=== PATIENT | male | born 2000 | race Caucasian/White ===

== ENCOUNTER 2021-02-02 19:50 | Emergency (ER) | payer MEDICAID, SELFPAY ==
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
[2021-02-02 20:00] VITALS: BP 135/79; BP 180/90; PULSE 118; PULSE 124; RESP 16; TEMP 37.3; O2SAT 98; BMI 39.1
[2021-02-02 20:06] VITALS: BP 135/79; PULSE 119; RESP 15; O2SAT 99
[2021-02-02 21:37] VITALS: BP 119/70; PULSE 99; RESP 15; O2SAT 97
[2021-02-02] MEDS: oxyCODONE HCl Immed Release 5 MG TABLET 10 MG PO (21:38)
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
== END 2021-02-02 21:43 | disposition home or self-care (01) ==
PROVIDERS: Emergency Provider Internal Medicine
DX: S20.211A Contusion of right front wall of thorax, initial encounter (principal); R07.81 Pleurodynia; Y04.8XXA Assault by other bodily force, initial encounter; Y93.9 Activity, unspecified; Y92.9 Unspecified place or not applicable; Y99.9 Unspecified external cause status; Z79.899 Other long term (current) drug therapy
CPT/HCPCS: 71101; 99285

== ENCOUNTER 2021-02-16 11:48 | Emergency (ER) | payer MEDICAID, SELFPAY ==
[2021-02-16 12:03] VITALS: BP 102/74; PULSE 91; RESP 16; TEMP 36.9; O2SAT 96; BMI 37.5
[2021-02-16 12:22] LABS: IDNOW Serial# 9DD0AD1C; Strep A Nucleic Acid Positive (Negative)
[2021-02-16 12:58] LABS: Influenza A PCR NEGATIVE (Negative); Influenza B PCR NEGATIVE (Negative); Resp Syncy Virus RNA Qual PCR NEGATIVE (Negative); SARS COV2 PCR INHOUSE POSITIVE (Negative)
--- NOTE | 2021-02-16 13:34 | ED.URI ---
HPI - URI/Sore Throat General Chief Complaint: Upper Respiratory Symptoms Stated Complaint: SORE THROAT Time Seen by Provider: 02/16/21 13:10 Source: patient Mode of arrival: ambulatory History of Present Illness HPI Narrative: 20-year-old male with no significant past medical history presenting to the ED complaining of sore throat since yesterday morning. Reports pain with swallowing. Denies fever, chills, ear pain, cough, headache, sick contacts, recent travel, difficulty/inability to swallow MD elicited complaint: sore throat Related Data Previous Rx's Medication Instructions Recorded oxycodone 5 mg PO Q6H PRN #20 tab 02/02/21 acetaminophen [Tylenol Extra 500 mg PO Q6H PRN #20 tab 02/16/21 Strength] amoxicillin-pot clavulanate 1 tab PO Q12H 7 Days #14 tab 02/16/21 [Augmentin] ibuprofen 600 mg PO Q8H PRN #14 tab 02/16/21 Allergies Allergy/AdvReac Type Severity Reaction Status Date / Time No Known Allergies Allergy Verified 02/02/21 20:05 Review of Systems Review of Systems: Constitutional: No Fever, No Chills ENT/Mouth: No Ear Pain, No Nasal Congestion, No Sinus Pain, No Hoarseness, + sore throat, No Swallowing Difficulty Cardiovascular: No Chest Pain, No SOB Respiratory: No Cough, No Sputum, No Wheezing Gastrointestinal: No Nausea, No Vomiting, No Abdominal pain Musculoskeletal: No joint pain, No Myalgias, No Joint Swelling Skin: No Skin Lesions, No rash Yes all other systems are reviewed and are negative [facility] Past Medical History Attestation statement: The following information was validated with the patient. Medical History (Updated 02/16/21 @ 13:38 by ALEXANDRA Frey) No known health problems Social History Social History Alcohol intake: never Advance Directives: Yes Advance Directives Information Provided: No Advance Directives on File: No Physical Exam Vital Signs: Vital Signs: Last Vital Signs Temp 98.5 F 02/16/21 12:03 Pulse 91 02/16/21 12:03 Resp 16 02/16/21 12:03 BP 102/74 02/16/21 12:03 Pulse Ox 96 02/16/21 12:03 Body Mass Index 37.5 Const: General: cooperative, healthy appearing and no acute distress Orientation/consciousness: patient oriented x3 Limitations: no limitations HENMT: Head: Yes normal to inspection Ears: hearing grossly normal bilaterally, external ears normal and TM's normal bilaterally General nose exam: Normal external nose present Face and sinus: Yes normal facial exam Throat: Yes uvula midline, Yes abnormal tonsil (Bilateral tonsillar erythema and exudates), No peritonsillar mass, No uvula laterally displaced and No uvular edema Eyes: General: appearance normal, both eyes and all related structures EOM: EOMs intact bilaterally Neck: Neck: Yes normal visual inspection and Yes lymphadenopathy (Submandibular lymphadenopathy) Resp: Effort & Inspection: normal respiratory effort, not labored and no stridor Cardio: Rate: regular rate Heart sounds: S1 normal heart sound present and S2 normal heart sound present GI: Inspection: Yes normal to inspection Skin: Rashes: no rashes Wounds: no wounds Neuro: General: patient oriented x3 Gait exam (Neuro): Normal gait present Extrem: General: Yes normal to inspection Course Course Course Narrative: -rapid strep positive and COVID-19 positive. Results discussed with patient including worrisome signs and symptoms and strict return precautions. Patient given 1st dose of p.o. Augmentin and p.o. Decadron in the ED MDM - URI/Sore Throat MDM Narrative Medical decision making narrative: 20-year-old male with no significant past medical history presenting to the ED complaining of sore throat since yesterday morning. On exam VSS, NAD, nontoxic appearing, physical exam consistent with strep pharyngitis. Plan: Rapid strep, PO Decadron, p.o. Augmentin Medical Records Attestation: I reviewed the patient's medical records. Lab Data Labs: Lab Results 02/16/21 02/16/21 Range/Units 12:10 12:10 Coronavirus (PCR) POSITIVE A (Negative) Influenza Type A (PCR) NEGATIVE (Negative) Influenza Type B (PCR) NEGATIVE (Negative) RSV RNA Qual (PCR) NEGATIVE (Negative) S. pyogenes GrpA GILLIAN Positive A (Negative) Discharge Plan Discharge Clinical Impression: COVID-19 Pharyngitis Qualifiers: Pharyngitis/tonsillitis etiology: streptococcus Qualified Code(s): J02.0 - Streptococcal pharyngitis Patient Disposition: Home, Self-Care Instructions: Strep Throat (ED), COVID-19 (Coronavirus Disease 2019) (ED) Additional Instructions: You have strep throat and COVID-19, Augmentin as an antibiotic, take as prescribed You need to self isolate for 10-14 days. If you develop constant worsening shortness breath or chest pain free return to the ED In addition take ibuprofen and Tylenol for pain and swelling We were given a dose of an oral steroid in the emergency department, this will help with swelling Make sure staying hydrated at If her spiking fevers are not coming down Tylenol or Motrin, pain becomes unbearable, you are unable to eat or drink, or have persistent nausea/vomiting please return to the ED Otherwise follow-up with your doctor CDC Guidelines for home isolation: - Stay away from others - WEAR A MASK if you are sick AND STAY HOME - Cover your mouth and nose with a tissue when you cough or sneeze. Dispose of tissues in a lined trash can and wash your hands immediately with soap and water for at least 20 seconds. If soap and water are not available, clean hands with alcohol-based hand produce department supervisor that contains at least 60% alcohol. - Clean your hands often with soap and water for at least 20 seconds - Avoid touching your eyes, nose and mouth with unwashed hands - Do not share dishes, drinking glasses, cups, eating utensils, towels, or bedding with other people in your home. After using these items, wash them thoroughly with soap and water or put in the activities therapist. - Clean high-touch surfaces in your isolation area ( sick room and bathroom) every day; let a caregiver clean and disinfect high-touch surfaces in other areas of the home. Clean the area or item with soap and water or another detergent if it is dirty. Then, use a household disinfectant. - Limit contact with pets and animals: If you must care for a pet, wash your hands before and after interacting with them) Prescriptions: New acetaminophen [Tylenol Extra Strength] 500 mg tablet 500 mg PO Q6H PRN (Reason: pain or fever) Qty: 20 RF: 0 ibuprofen 600 mg tablet 600 mg PO Q8H PRN (Reason: fever or pain) Qty: 14 RF: 0 amoxicillin-pot clavulanate [Augmentin] 875-125 mg tablet 1 tab PO Q12H 7 Days Qty: 14 RF: 0 No Action oxycodone 5 mg tablet 5 mg PO Q6H PRN (Reason: Pain (Scale Score 4-6)) Qty: 20 RF: 0 Referrals: Rain Esteban MD [Primary Care Provider] - 3 days Stand Alone Forms: Work/School Release
[2021-02-16 13:55] VITALS: BP 126/80; PULSE 79; RESP 17; TEMP 36.9; O2SAT 99
[2021-02-16] MEDS: Acetaminophen 325 MG TABLET 650 MG PO (13:58)
[2021-02-16] MEDS: dexAMETHasone 2 MG TABLET 10 MG PO (13:59)
[2021-02-16] MEDS: Amoxicillin/Potassium Clav 875 MG TABLET PO (13:59)
== END 2021-02-16 14:05 | disposition home or self-care (01) ==
PROVIDERS: Emergency Provider Emergency Medicine Emergency Medical Services; PCP Pediatrics
DX: U07.1 COVID-19 (principal); J02.0 Streptococcal pharyngitis
CPT/HCPCS: 0241U; 36415; 87651; 99283; 99285; J8540

== ENCOUNTER 2021-06-04 19:07 | Emergency (ER) | payer MEDICAID, SELFPAY ==
[2021-06-04 19:09] VITALS: BP 133/71; PULSE 77; RESP 18; TEMP 36.7; O2SAT 97; BMI 38.3
--- NOTE | 2021-06-04 19:41 | ED.GENADULT ---
HPI - General Adult General Chief complaint: General Medical Stated complaint: allergic reaction Time Seen by Provider: 06/04/21 19:39 Source: patient Mode of arrival: ambulatory Limitations: no limitations History of Present Illness HPI narrative: 20 y/o male presenting to the ER from home c/o right forearm arm rash and itching that started yesterday. It is improved today. He works in [employer] at [employer] and thinks he got a cleaning chemical on his forearm. It is slightly raised and itches intermittently. He has not put anything on it or taken any medications and it is better today. He was concerned because it was close to a vein. complaint: rash Onset (ago): day(s) (2) Location: right and upper extremity Radiation: non-radiation Severity: mild Severity scale (1-10): 3 Quality: burning Pain Consistency: intermittent Relieving factors: none Exacerbating factors: none Associated symptoms: denies other symptoms Treatments prior to arrival: none Related Data Previous Rx's Medication Instructions Recorded oxycodone 5 mg tablet 5 mg PO Q6H PRN #20 tab 02/02/21 acetaminophen 500 mg tablet 500 mg PO Q6H PRN #20 tab 02/16/21 (Tylenol Extra Strength) amoxicillin 875 mg-potassium 1 tab PO Q12H 7 Days #14 tab 02/16/21 clavulanate 125 mg tablet (Augmentin) ibuprofen 600 mg tablet 600 mg PO Q8H PRN #14 tab 02/16/21 hydrocortisone 2.5 % topical cream 1 appl TOPICAL TID #28 g 06/04/21 Allergies Allergy/AdvReac Type Severity Reaction Status Date / Time No Known Allergies Allergy Verified 06/04/21 19:09 Review of Systems Review of Systems: Constitutional: No Fever, No Chills Gastrointestinal: No Nausea, No Vomiting Musculoskeletal: No joint pain, No Myalgias Skin: No Skin Lesions, + rash Neuro: No Numbness, Psych: + Anxiety/Panic, No Depression Heme/Lymph: No Bruising, No Lymphadenopathy PMFSH Past Medical History Medical History (Updated 06/04/21 @ 19:57 by ALEXANDRA Leone) No known health problems Social History Social History Alcohol intake: never Patient Tobacco Use Status: Never used Tobacco Advance Directives: No Advance Directives Information Provided: No Physical Exam Vital Signs: Vital Signs: Last Vital Signs Temp 98.1 F 06/04/21 19:09 Pulse 77 06/04/21 19:09 Resp 18 06/04/21 19:09 BP 133/71 06/04/21 19:09 Pulse Ox 97 06/04/21 19:09 Body Mass Index 38.3 Appearance: Alert. Oriented X3. No acute distress. HEENT: normal inspection CVS: Normal heart rate and rhythm. Pulses normal. Respiratory: No respiratory distress. Skin: Skin warm and dry. Normal skin color. Normal skin turgor. . Extremities: right distal forearm on medial aspect with area of mildly erythematous maclopapular rash with excoriations, no warmth or tenderness. NV intact distally. No other areas of rash on the body Neuro: Oriented X 3. No motor deficit. No sensory deficit. Course Course Course Narrative: 20 y/o male presenting with a very localized rash on his distal right forearm, likely a contact dermatitis. No airway involvement, no facial swelling. Counseled on management, will give steroid cream. Encouraged to take benadryl as needed for itching. Stable for d/c home with supportive care. Discharge Plan Discharge Clinical Impression: Contact dermatitis Qualifiers: Contact dermatitis type: irritant Contact dermatitis trigger: unspecified trigger Qualified Code(s): L24.9 - Irritant contact dermatitis, unspecified cause Patient Disposition: Home, Self-Care Instructions: Dermatitis (ED) Additional Instructions: Use the prescribed steroid cream on your rash 3 times per day. Follow up with your doctor as needed. Prescriptions: New hydrocortisone 2.5 % cream 1 appl topical TID Qty: 28 RF: 0 No Action oxycodone 5 mg tablet 5 mg PO Q6H PRN (Reason: Pain (Scale Score 4-6)) Qty: 20 RF: 0 acetaminophen [Tylenol Extra Strength] 500 mg tablet 500 mg PO Q6H PRN (Reason: pain or fever) Qty: 20 RF: 0 ibuprofen 600 mg tablet 600 mg PO Q8H PRN (Reason: fever or pain) Qty: 14 RF: 0 amoxicillin-pot clavulanate [Augmentin] 875-125 mg tablet 1 tab PO Q12H 7 Days Qty: 14 RF: 0 Stand Alone Forms: Work/School Release Interventions: ED Discharge Assessment Last Done: 06/04/21 20:53 Discharge Date/Time: 06/04/21 20:54
== END 2021-06-04 20:54 | disposition home or self-care (01) ==
PROVIDERS: Emergency Provider Emergency Medicine Emergency Medical Services
DX: L24.9 Irritant contact dermatitis, unspecified cause (principal); Z79.899 Other long term (current) drug therapy
CPT/HCPCS: 99283

== ENCOUNTER 2021-06-21 14:10 | Emergency (ER) | payer MEDICAID, SELFPAY ==
[2021-06-21 14:44] VITALS: BP 118/82; PULSE 70; RESP 16; TEMP 36.7; O2SAT 97; BMI 39.1
--- NOTE | 2021-06-21 15:39 | ED.EXTPRO ---
HPI - Extremity Problem General Chief complaint: Extremity Problem Stated complaint: left arm pain chest pain vaccine on 06/19 Time Seen by Provider: 06/21/21 15:39 Source: patient Mode of arrival: ambulatory Limitations: no limitations History of Present Illness HPI Narrative: 20-year-old male is here today for complaining of left arm pain. Patient reports that he received COVID-19 vaccine on June 19 and started with pain at the injection site yesterday when he was at work. Patient woke up this morning and reports that the pain is worse. He also reports body ache today. Denies any subjective fevers denies any ill contacts. MD Complaint: extremity pain Onset (ago): day(s) Related Data Previous Rx's Medication Instructions Recorded oxycodone 5 mg tablet 5 mg PO Q6H PRN #20 tab 02/02/21 acetaminophen 500 mg tablet 500 mg PO Q6H PRN #20 tab 02/16/21 (Tylenol Extra Strength) amoxicillin 875 mg-potassium 1 tab PO Q12H 7 Days #14 tab 02/16/21 clavulanate 125 mg tablet (Augmentin) ibuprofen 600 mg tablet 600 mg PO Q8H PRN #14 tab 02/16/21 hydrocortisone 2.5 % topical cream 1 appl TOPICAL TID #28 g 06/04/21 ibuprofen 600 mg tablet 600 mg PO Q8H PRN #20 tab 06/21/21 Allergies Allergy/AdvReac Type Severity Reaction Status Date / Time No Known Allergies Allergy Verified 06/04/21 19:09 Review of Systems Review of Systems: Constitutional : No Weight loss, No Fever, No Chills, No Night Sweats, No Fatigue, No Malaise ENT/Mouth : No Hearing loss, No Ear Pain, No Nasal Congestion, No Sinus Pain, No Hoarseness, No sore throat, No Rhinorrhea, No Swallowing Difficulty Eyes: No Eye Pain, No Swelling, No Redness, No Foreign Body, No Discharge, No Vision Changes Cardiovascular : No Chest Pain, No SOB, No Dyspnea on Exertion, No Orthopnea, No Edema, No Palpitations Respiratory : No Cough, No Sputum, No Wheezing, No Smoke Exposure, No Dyspnea Gastrointestinal : No Nausea, No Vomiting, No Diarrhea, No Constipation, No abdominal Pain, No Hematochezia, No Melena Genitourinary : no irregular bleeding, No Dysuria, No Urinary Frequency, No Hematuria, No Urinary Incontinence, No Urgency, No Flank Pain, No Urinary Flow Changes, No Hesitancy Musculoskeletal : No joint pain, No Myalgias, No Joint Swelling, left arm pain Skin : No Skin Lesions, No rash Neuro : No Weakness, No Numbness, No Paresthesias, No Loss of Consciousness, No Dizziness, No Headache Yes all other systems are reviewed and are negative PMFSH Past Medical History Medical History (Updated 06/21/21 @ 16:26 by Mariana Rene [facility]) No known health problems Social History Social History Alcohol intake: never Patient Tobacco Use Status: Never used Tobacco Advance Directives: No Advance Directives Information Provided: No Physical Exam Vital Signs: Vital Signs: Last Vital Signs Temp 98.1 F 06/21/21 14:44 Pulse 70 06/21/21 14:44 Resp 16 06/21/21 14:44 BP 118/82 06/21/21 14:44 Pulse Ox 97 06/21/21 14:44 Body Mass Index 39.1 Const: General: healthy appearing, no acute distress and well developed Nutritional Appearance: well nourished Orientation/consciousness: patient oriented x3 HENMT: Head: Yes normal to inspection, Yes normocephalic and Yes atraumatic Neck: Neck: Yes normal visual inspection, Yes full ROM and Yes trachea midline Thyroid: Thyroid normal Resp: Auscultation: clear to auscultation bilaterally Cardio: Rate: regular rate Rhythm: regular rhythm GI: Inspection: Yes normal to inspection and No distended Palpation (GI): No hepatosplenomegaly present Auscultation: normal bowel sounds Skin: General skin exam: elasticity normal, turgor normal and dry skin Neuro: General: patient oriented x3 Extrem: General: Yes normal to inspection, Yes full ROM and Yes capillary refill normal Course Course Course Narrative: 20-year-old male who is here today for complaining of left arm pain. Patient received COVID-19 vaccine on June 19 and now reports that the injection site is sore. He also reports that he had some pain that was radiating to his shoulder and some arm twitching. He also reports that he started with some body aches this morning. Denies any respiratory symptoms. Denies any GI symptoms. Mild tenderness to left deltoid muscle no redness no swelling no hematoma. Will swap him for COVID-19 as he is complaining of body aches most likely this is are symptom related to vaccine Reevaluation(s) Reevaluation #1: Patient is COVID-19 negative. We will send him home. Patient was instructed to apply warm compresses to his left deltoid area. I will give him script for ibuprofen. MDM - Extremity (Nontraumatic) Lab Data Labs: Lab Results 06/21/21 Range/Units 15:49 COVID-19 (LINDA) Negative (Negative) COVID-19 Clin Com See Note Discharge Plan Discharge Clinical Impression: Body aches after vaccination Arm pain Qualifiers: Laterality: left Qualified Code(s): M79.602 - Pain in left arm Patient Disposition: Home, Self-Care Instructions: Arm Pain (ED) Additional Instructions: You were seen here today after you received COVID-19 vaccine. Your symptoms are related to the vaccine. You are COVID-19 negative. Please take ibuprofen on as needed basis. You may also apply warm compresses to affected area. You may return to emergency department if her symptoms will get worse or if you experience any additional concerning symptoms. Prescriptions: New ibuprofen 600 mg tablet 600 mg PO Q8H PRN (Reason: pain) Qty: 20 RF: 0 No Action oxycodone 5 mg tablet 5 mg PO Q6H PRN (Reason: Pain (Scale Score 4-6)) Qty: 20 RF: 0 acetaminophen [Tylenol Extra Strength] 500 mg tablet 500 mg PO Q6H PRN (Reason: pain or fever) Qty: 20 RF: 0 ibuprofen 600 mg tablet 600 mg PO Q8H PRN (Reason: fever or pain) Qty: 14 RF: 0 amoxicillin-pot clavulanate [Augmentin] 875-125 mg tablet 1 tab PO Q12H 7 Days Qty: 14 RF: 0 hydrocortisone 2.5 % cream 1 appl topical TID Qty: 28 RF: 0 Interventions: ED Discharge Assessment Last Done: 06/21/21 16:31 Discharge Date/Time: 06/21/21 16:31
[2021-06-21 16:13] LABS: COVID-19 Test Negative (Negative)
== END 2021-06-21 16:31 | disposition home or self-care (01) ==
PROVIDERS: Nurse Practitioner Family; Emergency Provider Emergency Medicine
DX: M79.602 Pain in left arm (principal); Z20.822 Contact with and (suspected) exposure to COVID-19; Z79.899 Other long term (current) drug therapy
CPT/HCPCS: 36415; 87635; 99283

== ENCOUNTER 2024-04-21 01:31 | Emergency (ER) | payer SELFPAY ==
--- NOTE | 2024-04-21 | ECG_ITS ---
Test Reason : SYNCOPE Blood Pressure : / mmHG Vent. Rate : 054 BPM Atrial Rate : 054 BPM P-R Int : 180 ms QRS Dur : 082 ms QT Int : 414 ms P-R-T Axes : 014 072 031 degrees QTc Int : 392 ms Sinus bradycardia Otherwise normal ECG No previous ECGs available Referred By: Colette Renteria Electronically Signed By:Lalo Diego
--- NOTE | ~2024-04-21 | CT_ITS ---
EXAMINATION: NONCONTRAST HEAD CT NONCONTRAST CERVICAL SPINE CT INDICATION INFORMATION: Fall with pain COMPARISON: None TECHNIQUE: Separate noncontrast CT examinations of the head and cervical spine were performed. Coronal head CT images and coronal and sagittal cervical spine images were created at the technologist workstation. DLP: 1219 mGy-cm DOSE LOWERING TECHNIQUES: This CT examination was performed using dose optimization techniques as appropriate, variously including the following: - Automated exposure control - Adjustment of mA and/or kV according to patient size (this includes techniques or standardized protocols for targeted exams were dose is matched to indication/reason for exam; i.e. extremities or head) - Use of iterative reconstruction technique FINDINGS: Head: There is no evidence of acute intracranial hemorrhage or territorial infarction. No abnormal mass-effect or midline shift is seen. Rae to white matter differentiation is well preserved. No extra-axial fluid collections are identified. The ventricles are normal in size. There is no abnormal attenuation within the brain parenchyma. The osseous structures and soft tissues are normal. The mastoid air cells and visualized portions of the paranasal sinuses are well-aerated. Cervical spine: There is anatomic alignment of the vertebral bodies and posterior elements. Vertebral body heights are maintained. Intervertebral disc spaces are preserved. No evidence of acute fracture. No prevertebral soft tissue swelling. Visualized portions of the lung apices are unremarkable. The thyroid gland is unremarkable. CT/CT head/brain wo IV con IMPRESSION: No acute findings identified in the head or cervical spine.
--- NOTE | ~2024-04-21 | CT_ITS ---
EXAMINATION: NONCONTRAST HEAD CT NONCONTRAST CERVICAL SPINE CT INDICATION INFORMATION: Fall with pain COMPARISON: None TECHNIQUE: Separate noncontrast CT examinations of the head and cervical spine were performed. Coronal head CT images and coronal and sagittal cervical spine images were created at the technologist workstation. DLP: 1219 mGy-cm DOSE LOWERING TECHNIQUES: This CT examination was performed using dose optimization techniques as appropriate, variously including the following: - Automated exposure control - Adjustment of mA and/or kV according to patient size (this includes techniques or standardized protocols for targeted exams were dose is matched to indication/reason for exam; i.e. extremities or head) - Use of iterative reconstruction technique FINDINGS: Head: There is no evidence of acute intracranial hemorrhage or territorial infarction. No abnormal mass-effect or midline shift is seen. Rae to white matter differentiation is well preserved. No extra-axial fluid collections are identified. The ventricles are normal in size. There is no abnormal attenuation within the brain parenchyma. The osseous structures and soft tissues are normal. The mastoid air cells and visualized portions of the paranasal sinuses are well-aerated. Cervical spine: There is anatomic alignment of the vertebral bodies and posterior elements. Vertebral body heights are maintained. Intervertebral disc spaces are preserved. No evidence of acute fracture. No prevertebral soft tissue swelling. Visualized portions of the lung apices are unremarkable. The thyroid gland is unremarkable. CT/CT cervical spine wo IV con IMPRESSION: No acute findings identified in the head or cervical spine.
[2024-04-21 01:39] VITALS: BP 145/86; PULSE 108; O2SAT 99
[2024-04-21 01:48] VITALS: BP 129/79; PULSE 58; RESP 18; TEMP 36.8; O2SAT 96; BMI 30.5
--- NOTE | 2024-04-21 02:00 | ED.SYNCOPE ---
HPI - Syncope General Chief Complaint: Dizziness Stated Complaint: anxiety Time Seen by Provider: 04/21/24 01:32 Source: patient Mode of arrival: ambulatory Limitations: no limitations History of Present Illness ED Provider: YARIEL BOWLES narrative: 23 yo male with no sig PMH reports sig stress in his life and personal issues not eating or drinking or taking care of himself he was on the phone tonight and then passed out. He hit his head. He notes now he has headache and is dizzy. He has no SI/HI. He admits that he really isn't taking care of himself. NO seizures reported. No CP/SOB. He was hyperventilating en route to the hospital and was having muscle cramps. Not on blood thinners MD complaint: felt faint Onset (ago): minute(s) ([employer]) -: second(s) Prodromal symptoms: lightheaded Witnessed: Yes - by Bystander Context: other (standing) Injuries sustained associated with event: head Current symptoms: lightheaded History: other (not eating or drinking fluids recently) Treatments prior to arrival: none Related Data Previous Rx's ?Medication ?Instructions ?Recorded oxycodone 5 mg tablet 5 mg PO Q6H PRN Pain (Scale Score 02/02/21 4-6) #20 tabs acetaminophen 500 mg tablet 500 mg PO Q6H PRN pain or fever 02/16/21 (Tylenol Extra Strength) #20 tabs amoxicillin 875 mg-potassium 1 tab PO Q12H 7 days #14 tabs 02/16/21 clavulanate 125 mg tablet (Augmentin) ibuprofen 600 mg tablet 600 mg PO Q8H PRN fever or pain 02/16/21 #14 tabs hydrocortisone 2.5 % topical cream 1 appl topical TID #28 grams 06/04/21 ibuprofen 600 mg tablet 600 mg PO Q8H PRN pain #20 tabs 06/21/21 Allergies Allergy/AdvReac Type Severity Reaction Status Date / Time No Known Allergies Allergy Verified 04/21/24 01:52 Review of Systems Review of Systems: Constitutional : No Fever, No Chills, No Fatigue ENT/Mouth : No sore throat, No Rhinorrhea Eyes: No Eye Pain, No Swelling, No Redness Cardiovascular : No Chest Pain, No SOB, No Dyspnea on Exertion Respiratory : No Cough, No Sputum Gastrointestinal : No Nausea, No Vomiting, No Diarrhea, No abdominal Pain Genitourinary : No Dysuria, No Urinary Frequency, No Hematuria, Musculoskeletal : No joint pain, No Myalgias, No Joint Swelling Skin : No Skin Lesions, No rash Neuro : No Weakness, No Numbness, pos Dizziness, positive Headache Psych : pos Anxiety/Panic, No Depression Heme/Lymph: No Bruising, No Bleeding,No Lymphadenopathy All other systems reviewed and are negative COUNT INCLUDES THE [facility] Past Medical History Attestation statement: The following information was validated with the patient. Source: old records reviewed Medical History No known health problems Social History Social History Alcohol intake: never Patient Tobacco Use Status: Never used Tobacco Smoked in Last 30 Days: No Use of substances other than those prescribed or required for medical reasons: No Advance Directives: No Advance Directives Information Provided: Yes Physical Exam Vital Signs: Vital Signs: Last Vital Signs Temp 98.5 F 04/21/24 04:00 Pulse 57 04/21/24 04:00 Resp 18 04/21/24 04:00 BP 111/63 04/21/24 04:00 Pulse Ox 98 04/21/24 04:00 O2 Del Method Room Air 04/21/24 04:00 BMI result Body Mass Index 30.5 Appearance: Alert. Oriented X3. No acute distress. Eyes: Pupils equal, round and reactive to light. ENT: Pharynx dry MM. reports ttp on L side of head Neck: Normal inspection. Neck supple. CVS: Normal heart rate and rhythm. Pulses normal. Respiratory: No respiratory distress. Breath sounds normal. Abdomen: Soft and nontender. Skin: Skin warm and dry. Normal skin color. Normal skin turgor. Extremities: No lower extremity edema. No calf ttp Neuro: Oriented X 3. No motor deficit. No sensory deficit. Course Course Course Narrative: patient states he is feeling a lot better Medications Administered Discontinued Medications Generic Name Dose Route Start Last Admin Trade Name Freq PRN Reason Stop Dose Admin Lactated Ringer's 1,000 mls @ 999 mls/hr 04/21/24 01:57 04/21/24 02:19 Lr IV 04/21/24 02:57 999 mls/hr .Q1H1M ONE Administration Medical Decision Making Medical Decision Making MDM Narrative: 23 yo male with recent stress in life not eating or drinking passed out tonight now has headache after fall not on thinners suspect he hits his head and dad confirms he denies CP/SOB doubt VTE or ACS given lack of symptoms or risk factors at this time labs, IVF x 1L, CT head/cspine for trauma. He denies SI/HI. Differential Diagnosis Differential Diagnoses: The differential diagnosis associated with the presentation includes dehydration, anemia, FTT, anxiety no CP/SOB to suggest PE/ACS - PERC negative Admission/Observation Consideration of admission/observation: Escalation of care including admission/observation considered feels better stable for DC Lab Data [facility] Lab Attestation statement: I reviewed the patient's lab results. 04/21/24 02:12 04/21/24 02:12 Labs: Lab Results 04/21/24 Range/Units 02:12 WBC 7.5 (4.8-10.8) X10*3/uL RBC 5.01 (4.60-5.80) X10*6/uL Hgb 14.9 (14.0-18.0) g/dl Hct 41.8 L (42.0-52.0) % MCV 83.4 (80.0-98.0) fL MCH 29.7 (27.0-33.0) pg MCHC 35.6 (31.0-36.0) g/dl RDW 12.6 (11.0-16.0) % Plt Count 289 (160-400) X10*3/uL MPV 9.3 L (9.4-12.4) fL Immature Gran % (Auto) 0.1 (0.0-0.4) % Neut % (Auto) 55.8 (45-73) % Lymph % (Auto) 37.1 (20-40) % [place] % (Auto) 6.4 (2-11) % Eos % (Auto) 0.3 (0-4) % Baso % (Auto) 0.3 (0-2) % Lymph # (Auto) 2.8 (1.2-4.9) X10*3/uL [place] # (Auto) 0.5 (0.1-1.2) X10*3/uL Eos # (Auto) 0.0 (0.0-0.4) X10*3/uL Baso # (Auto) 0.0 (0.0-0.2) X10*3/uL Abs Immat Gran (auto) 0.01 (0.00-0.03) X10*3/uL Absolute Neuts (auto) 4.2 (2.0-8.3) x10*3/uL Absolute Nucleated RBC 0.000 (0.0-0.012) X10*3/uL Nucleated RBC % (auto) 0.0 (0.0-0.2) /100WBC Sodium 142 (135-145) mmol/L Potassium 3.5 (3.3-5.1) mmol/L Chloride 107 (96-108) mmol/L Carbon Dioxide 21 L (22-29) mmol/L Anion Gap 18 (12-20) BUN 14 (9-16) mg/dL Creatinine 1.06 (0.5-1.4) mg/dL Estim Creat Clear Calc 113.0 Estimated GFR > 60 Random Glucose 93 (60-115) mg/dL Calcium 10.1 (8.4-10.2) mg/dL Magnesium 1.9 (1.6-2.6) mg/dL Ethyl Alcohol < 10 mg/dL Independent Interpretation I performed an independent interpretation of an: EKG and CT Scan (normal ) Interpretation: Rate: 54 Rhythm: sinus bradycardia [place]: normal Normal P waves. Normal [place]. Normal QRS complex. ST T wave : normal no DEVORA qTC: 392 prior studies: no acute ischemia The study has been interpreted contemporaneously by me. . Radiology Impression Discussion of test interpretation with radiology: I have reviewed the radiologist's reading. Discharge Plan Discharge Clinical Impression: Acute dehydration Syncope Qualifiers: Syncope type: unspecified Qualified Code(s): R55 - Syncope and collapse Patient Disposition: Home, Self-Care Instructions: Dehydration (ED), Syncope (ED) Additional Instructions: return for worsening symptoms stay hydrated cervical spine and CT head negative stay out of heat today Prescriptions: No Action oxycodone 5 mg tablet 5 mg PO Q6H PRN (Reason: Pain (Scale Score 4-6)) Qty: 20 0RF acetaminophen [Tylenol Extra Strength] 500 mg tablet 500 mg PO Q6H PRN (Reason: pain or fever) Qty: 20 0RF ibuprofen 600 mg tablet 600 mg PO Q8H PRN (Reason: fever or pain) Qty: 14 0RF amoxicillin-pot clavulanate [Augmentin] 875-125 mg tablet 1 tab PO Q12H 7 Days Qty: 14 0RF hydrocortisone 2.5 % cream 1 appl topical TID Qty: 28 0RF ibuprofen 600 mg tablet 600 mg PO Q8H PRN (Reason: pain) Qty: 20 0RF Print Language: Somali
[2024-04-21 02:17] LABS: MANUAL DIFF FLAG NO
[2024-04-21 02:18] LABS: Basophils Percent Auto 0.3 % (0-2); Eosinophils Percent Auto 0.3 % (0-4); Hematocrit 41.8 % (42.0-52.0); Hemoglobin 14.9 g/dl (14.0-18.0); Imm Gran Abs Auto 0.01 X10*3/uL (0.00-0.03); Imm Gran Pct Auto 0.1 % (0.0-0.4); Lymphocytes Absolute Auto 2.8 X10*3/uL (1.2-4.9); Lymphocytes Percent Auto 37.1 % (20-40); Mean Corpuscular HGB Conc 35.6 g/dl (31.0-36.0); Mean Corpuscular Hemoglobin 29.7 pg (27.0-33.0); Mean Corpuscular Volume 83.4 fL (80.0-98.0); Mean Platelet Volume 9.3 fL (9.4-12.4); Monocytes Absolute Auto 0.5 X10*3/uL (0.1-1.2); Monocytes Percent Auto 6.4 % (2-11); Neutrophils Absolute Auto 4.2 x10*3/uL (2.0-8.3); Neutrophils Percent Auto 55.8 % (45-73); Platelet Count 289 X10*3/uL (160-400); Red Blood Count 5.01 X10*6/uL (4.60-5.80); Red Cell Distribution Width 12.6 % (11.0-16.0); White Blood Count 7.5 X10*3/uL (4.8-10.8)
[2024-04-21] MEDS: Lactated Ringers 1,000 ML 999 ML IV (02:19)
[2024-04-21 02:33] LABS: Anion Gap 18 (12-20); Blood Urea Nitrogen 14 mg/dL (9-16); Calcium 10.1 mg/dL (8.4-10.2); Carbon Dioxide 21 mmol/L (22-29); Chloride 107 mmol/L (96-108); Estimated Glomerular Filt Rate > 60; Ethanol < 10 mg/dL; Glucose Random 93 mg/dL (60-115); Magnesium 1.9 mg/dL (1.6-2.6); Potassium 3.5 mmol/L (3.3-5.1); Sodium 142 mmol/L (135-145)
[2024-04-21 04:00] VITALS: BP 111/63; PULSE 57; RESP 18; TEMP 36.9; O2SAT 98
[2024-04-21 05:14] VITALS: BP 111/63; PULSE 57; RESP 18; TEMP 36.9; O2SAT 98
== END 2024-04-21 05:15 | disposition home or self-care (01) ==
PROVIDERS: Emergency Provider Emergency Medicine
DX: E86.0 Dehydration (principal); R55 Syncope and collapse
CPT/HCPCS: 36415; 70450; 72125; 80048; 80307; 83735; 85025; 93005; 96360; 96361; 99284; 99285; J7120

== ENCOUNTER → 2024-04-21 01:46 | Outpatient (BNV) | payer SELFPAY | PROVIDERS: Emergency Provider Emergency Medicine; Visit Provider Internal Medicine Cardiovascular Disease | DX: R55 Syncope and collapse (principal) | CPT/HCPCS: 93010 ==